=== PATIENT | male | born 1970 | race Caucasian/White ===

== ENCOUNTER 2020-01-22 07:34 | Outpatient (CLI) | payer BC ==
--- NOTE | 2020-01-22 08:04 | ULT ---
EXAM: US Thyroid STANDARD PROVIDED CLINICAL HISTORY: Neck lump. Palpable abnormality right neck. COMPARISON: None FINDINGS: The right lobe of thyroid gland measures 5.1 cm x 2 cm x 1.8 cm with the left lobe measuring 4.5 cm x 1.4 cm x 1.6 cm. The thyroid isthmus measures 0.2 cm in AP dimensions. There is a single approximately 0.3 cm hypoechoic nodule seen in the lateral aspect midportion right lobe of the thyroid gland. No additional thyroid nodule is seen in either lobe of the thyroid gland. A few nonenlarged lymph nodes are seen in the right neck which is in region of palpable abnormality. Largest lymph node in this region measures 1.4 cm x 0.4 cm x 0.9 cm. IMPRESSION: TI RADS level 4 nodule right lobe of the thyroid gland, moderately suspicious: No additional follow-u p or fine-needle aspiration is recommended according to ACR guidelines based on size criteria of this nodule.
== END 2020-01-22 07:35 | disposition home or self-care (01) ==
LOC: BICULT 07:34
PROVIDERS: ATTEND Family Medicine
DX: R22.1 Localized swelling, mass and lump, neck (principal); E04.1 Nontoxic single thyroid nodule
CPT/HCPCS: 76536